=== PATIENT | male | born 1965 | race Hispanic/Latino ===

== ENCOUNTER 2019-10-08 08:45 | Outpatient (CLI) | payer OTHER ==
--- NOTE | 2019-10-08 10:59 | CT ---
CT OF THE ABDOMEN AND PELVIS WITH AND WITHOUT IV CONTRAST INDICATION: 54-year-old male with hematuria, suprapubic abdominal pain and renal cysts TECHNIQUE: Noncontrast CT of the abdomen and pelvis was performed. Postcontrast images were obtained in the nephrographic phase and delayed phase. Axial and coronal reformatted images were constructed from the raw data. COMPARISON: Renal ultrasound dated December 13, 2011 FINDINGS: ABDOMEN: Lung bases: Clear Liver: Multiple small hepatic cysts. The largest is seen within the left hepatic lobe measuring 1.4 c m Gallbladder: Normal appearing. Pancreas: Normal. Adrenal glands: Normal. Spleen: Normal. Kidneys and ureters: There are tiny left renal cyst involving superior pole. There is a prominent lef t mid renal cyst measuring 6.0 x 4.5 cm per. This is increased in size from the renal ultrasound examination dated 12/13/2011 when the cyst measured 3.5 x 3.1 cm. No definite solid renal lesion is ev ident. No renal or ureteral calculus is demonstrated. No gross urothelial lesion is identified. Vasculature: Normal. Lymph nodes:No lymphadenopathy. Free fluid in abdomen:No free fluid is evident. PELVIS: Small and large bowel: Colonic diverticulosis. No active evidence of colonic diverticulitis. Small torrey wel is of normal caliber Appendix:Normal Bladder: Normal. Rectal and perirectal soft tissues:Normal. Reproductive structures: Prostate measures 5.3 cm Free fluid in pelvis: No free fluid is evident. Lymphadenopathy pelvis: No lymphadenopathy is evident. Osseous structures: No acute osseous abnormality. No destructive osteolytic or osteoblastic lesion i s identified. There is scattered degenerative and osteoarthritic changes. Soft tissues:Normal. IMPRESSION: 1. No solid renal lesion demonstrated. 2. Interval enlargement of the left mid renal cyst, now measuring 6 x 4.5 cm. Smaller subcentimeter c ysts are seen within the superior pole of the left kidney. 3. No renal or ureteral calculus. 4. No gross urothelial lesion identified. 5. Prostate enlargement
[2019-10-08] MEDS ORDERED: Iopamidol-370 76% 500 ML 1 ML ONE (14:27)
== END 2019-10-08 08:46 | disposition home or self-care (01) ==
LOC: BICCT 08:45
PROVIDERS: ATTEND Urology
DX: N40.1 Benign prostatic hyperplasia with lower urinary tract symptoms (principal); N28.1 Cyst of kidney, acquired; R31.9 Hematuria, unspecified; R10.2 Pelvic and perineal pain
CPT/HCPCS: 74178; Q9967